=== PATIENT | female | born 1980 | race Caucasian/White ===

== ENCOUNTER 2017-08-14 14:48 | Emergency (ER) | payer OTHER ==
[2017-08-14] MEDS ORDERED: IV NORMAL SALINE 1,000ML 500 ML IV SCH (15:12)
[2017-08-14] MEDS ORDERED: NITROGLYCERIN SUBLINGUAL 0.4 MG BOTTLE OF 25. SL PRN (15:15)
--- NOTE | 2017-08-14 15:19 | EKG ---
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
[2017-08-14] MEDS ORDERED: ALPRAZolam 0.25 MG TABLET ONE (15:21)
--- NOTE | 2017-08-14 15:29 | RAD ---
Single view chest 08/14/2017 Clinical indication: Chest pain. Comparison: None. Findings: Multiple leads overlie the patient. Probable bilateral breast implants are noted which results in artifactual hazy attenuation of the lower lungs. Cardiac and mediastinal silhouettes are unremarkable. No pleural effusion, pneumothorax or focal consolidation. Impression: No acute cardiopulmonary abnormality.
[2017-08-14 15:44] LABS: BASO # 0.1 x10^3/uL (0.0-0.2); BASO % 1 % (0-3); EOS % 0 % (0-3); HEMATOCRIT 41.5 % (36.0-47.0); HEMOGLOBIN 14.3 g/dL (12.0-15.5); LYMPH # 1.9 x10^3/uL (1.0-4.8); LYMPH % 19 % (24-48); MEAN CORPUSCULAR HEMOGLOBIN 32 pg (25-35); MEAN CORPUSCULAR HGB CONC 34 g/dL (31-37); MEAN CORPUSCULAR VOLUME 94 fL (79-100); MONO # 0.6 x10^3/uL (0.0-1.1); MONO % 6 % (0-9); NEUT # 7.3 x10^3uL (1.8-7.7); NEUT % 74 % (31-73); PLATELET COUNT 358 x10^3/uL (140-400); RED BLOOD COUNT 4.43 x10^6/uL (3.50-5.40); RED CELL DISTRIBUTION WIDTH 12.7 % (11.5-14.5); WHITE BLOOD COUNT 9.9 x10^3/uL (4.0-11.0)
[2017-08-14] MEDS ORDERED: ASPIRIN 81 MG TAB.CHEW PO ONE (15:45)
[2017-08-14] MEDS ORDERED: ALPRAZolam 0.25 MG TABLET PO ONE (15:45)
[2017-08-14] MEDS ORDERED: ALPRAZolam 0.5 MG TABLET PO ONE (15:45)
[2017-08-14 16:07] LABS: ALBUMIN 4.6 g/dL (3.4-5.0); ALBUMIN/GLOBULIN RATIO 1.2 (1.0-1.7); CREATININE 0.9 mg/dL (0.6-1.0); GFR 70.5; POTASSIUM 4.2 mmol/L (3.5-5.1); TOTAL BILIRUBIN 0.9 mg/dL (0.2-1.0); TOTAL PROTEIN 8.4 g/dL (6.4-8.2)
--- NOTE | 2017-08-14 16:30 | PHYS DOC ---
General Chief Complaint: CHEST PAIN Stated Complaint: CHEST PAIN Time Seen by MD: 14:58 Problems: History of Present Illness Allergies: Coded Allergies: No Known Drug Allergies (Unverified , 08/14/17) Orders, Labs, Meds EKG: Sinus tachycardia 100 bpm, nonspecific T contour abnormality no ST segment elevation. Interpreted by me. PATIENT: SMILEY TRUJILLO ACCOUNT: [id number] : 1980 LOCATION: ER AGE: 37 SEX: F EXAM STATUS: PRE ER ORD. PHYSICIAN: KENJI JONES DO REASON: cp PROCEDURE: PORTABLE CHEST 1V Single view chest 08/14/2017 Clinical indication: Chest pain. Comparison: None. Findings: Multiple leads overlie the patient. Probable bilateral breast implants are noted which results in artifactual hazy attenuation of the lower lungs. Cardiac and mediastinal silhouettes are unremarkable. No pleural effusion, pneumothorax or focal consolidation. Impression: No acute cardiopulmonary abnormality. DICTATED AND SIGNED BY: KASIE WATSON MD DATE: 08/14/17 1525 CC: KENJI JONES DO ~ 1641: I rechecked the patient she states that her chest pain has resolved. She still has some epigastric discomfort that she feels like it is GERD related. Her heart rate has normalized and all symptoms have improved with Xanax. She now reports that her left 3 days ago and intends to follow divorce, he has not contacted her or the kids and he leaves for further training in 2 days. She's been hurting emotionally for her children. Departure Time of Disposition: 17:38 Disposition: HOME, SELF-CARE Diagnosis: panic attack, adjustment disorder Condition: IMPROVED Patient Instructions: Anxiety and Panic Attacks, Efps-ac-Holi Additional Instructions: No driving or operating machinery while taking Xanax. Exercises, seek counseling, and other modalities to deal with your current stressors. Prescription: Xanax 0.25 mg quantity 10 Follow-up with your doctor on Thursday for recheck. Return to ED with new or changing symptoms. KENJI JONES DO Aug 14, 2017 16:30
[2017-08-14] MEDS ORDERED: LIDO:MAALOX 1:1 20 ML SINGLE DOSE PO ONE (17:00)
[2017-08-14] MEDS ORDERED: ALPR0.25 PO (17:37)
[2017-08-14 17:46] VITALS: BP 140/79
== END 2017-08-14 17:46 | disposition home or self-care (01) ==
LOC: ER 14:48
DX: F41.0 Panic disorder [episodic paroxysmal anxiety] (principal); F43.22 Adjustment disorder with anxiety
CPT/HCPCS: 36415; 71045; 80053; 82550; 83690; 83880; 84484; 85025; 85379; 93005; 96360; 96361; 99285-25; J7030

== ENCOUNTER 2018-09-30 14:32 | Emergency (ER) | payer OTHER ==
[~2018-09-30] VITALS: Ht 167.6 cm; Wt 70.3 kg
[~2018-09-30 14:32] MED LIST: ALPR0.25 PO
[2018-09-30] MEDS ORDERED: METO10TA81 PO (15:49)
[2018-09-30] MEDS ORDERED: SUCR1TAB35 PO (15:49)
[2018-09-30] MEDS ORDERED: LANS15CA78 PO (15:49)
--- NOTE | 2018-09-30 15:49 | PHYS DOC ---
Past History Past Medical History: Anxiety Past Surgical History: Other Alcohol Use: Occasionally Drug Use: None Adult General Chief Complaint Chief Complaint: ANXIETY/PANIC ATTACK HPI HPI Patient is a 38-year-old female who presents with reflux symptoms, some nausea and vomiting. This has been present for the past several days. Patient believes this may be due to stress and she had similar symptoms when going through a divorce. She is now currently going through a custody jesus with her ex . She denies any blood in the emesis. No recent deployment overseas. No diarrhea. Nothing seems to make the symptoms better or worse.[] Review of Systems Review of Systems Constitutional: Denies fever or chills [] Eyes: Denies change in visual acuity, redness, or eye pain [] HENT: Denies nasal congestion or sore throat [] Respiratory: Denies cough or shortness of breath [] Cardiovascular: No chest pain or palpitations[] GI: See history of present illness[] : Denies dysuria or hematuria [] Musculoskeletal: Denies back pain or joint pain [] Integument: Denies rash or skin lesions [] Neurologic: Denies headache, focal weakness or sensory changes [] Endocrine: Denies polyuria or polydipsia [] All other systems were reviewed and found to be within normal limits, except as documented in this note. Allergies Allergies Allergies Coded Allergies Type Severity Reaction Last Updated Verified No Known Drug Allergies 09/30/18 No Physical Exam Physical Exam Constitutional: Well developed, well nourished, no acute distress, non-toxic appearance. [] HENT: Normocephalic, atraumatic, bilateral external ears normal, oropharynx moist, no oral exudates, nose normal. [] Eyes: PERRLA, EOMI, conjunctiva normal, no discharge. [] Neck: Normal range of motion, no tenderness, supple, no stridor. [] Cardiovascular:Heart rate regular rhythm, no murmur [] Lungs & Thorax: Bilateral breath sounds clear to auscultation [] Abdomen: Bowel sounds normal, soft, no tenderness, no masses, no pulsatile masses. [] Skin: Warm, dry, no erythema, no rash. [] Back: No tenderness, no CVA tenderness. [] Extremities: No tenderness, no cyanosis, no clubbing, ROM intact, no edema. [] Neurologic: Alert and oriented X 3, normal motor function, normal sensory function, no focal deficits noted. [] Psychologic: Affect normal, judgement normal, mood normal. [] Current Patient Data Vital Signs Vital Signs Date Time Temp Pulse Resp B/P (MAP) Pulse Ox O2 Delivery O2 Flow Rate FiO2 09/30/18 14:43 98.4 107 18 97 Room Air EKG EKG [] Radiology/Procedures Radiology/Procedures [] Course & Med Decision Making Course & Med Decision Making Pertinent Labs and Imaging studies reviewed. (See chart for details) Medical decision making: We've the patient has gastritis and reflux potentially due to stress. We will attempt treatment as an outpatient with proton pump inhibitors as well as sucralfate. Will also prescribe antiemetics. Discussed sleep hygiene and potential smartphone applications such as "Zealify" to help with sleep rather than through medication. Patient voiced understanding. And was discharged in improved condition.[] Dragon Disclaimer Dragon Disclaimer This electronic medical record was generated, in whole or in part, using a voice recognition dictation system. Departure Departure: Impression: Primary Impression: Nausea and vomiting Additional Impressions: Gastritis Gastroesophageal reflux disease Disposition: HOME, SELF-CARE Condition: IMPROVED Referrals: PCP,UNKNOWN (PCP) Keep your appointment this next Thursday on post Patient Instructions: Diet for Gastroesophageal Reflux Disease, Adult, Gastritis, Adult, Gastroesophageal Reflux Disease, Adult, Nausea and Vomiting, Stress, Stress Management Additional Instructions: Follow-up with your regular doctor appointment scheduled for this next Thursday. Try chamomile tea with Valerian root at bedtime. This is so old commercially as Sleepy Time Extra. Try the smartphone application "Zealify" for a non- pharmaceutical Sleep-Aid. Return to the ER if worsening discomfort or any other concerns. Scripts Sucralfate (CARAFATE) 1 Gm Tablet 1 TAB PO QID for gastritis/reflux, #120 TAB 0 Refills Prov: LISA JONES DO 09/30/18 Lansoprazole (PREVACID) 15 Mg Capsule.dr 1 CAP PO DAILY for gastritis, #30 CAP 0 Refills Prov: LISA JONES DO 09/30/18 Metoclopramide Hcl (REGLAN) 10 Mg Tablet 10 MG PO QID for nausea and vomiting, #30 TAB Prov: LISA JONES DO 3/7/19 Problem Qualifiers Primary Impression: Nausea and vomiting Vomiting type: unspecified Vomiting Intractability: non-intractable Qualified Codes: R11.2 - Nausea with vomiting, unspecified Additional Impressions: Gastritis Gastritis type: unspecified gastritis Chronicity: unspecified Gastritis bleeding: without bleeding Qualified Codes: K29.70 - Gastritis, unspecified, without bleeding Gastroesophageal reflux disease Esophagitis presence: esophagitis presence not specified Qualified Codes: K21.9 - Gastro-esophageal reflux disease without esophagitis LISA JONES DO Sep 30, 2018 15:49
[2018-09-30 16:01] VITALS: BP 133/82
== END 2018-09-30 16:02 | disposition home or self-care (01) ==
LOC: ER 14:32
DX: K29.70 Gastritis, unspecified, without bleeding (principal); K21.9 Gastro-esophageal reflux disease without esophagitis; F41.9 Anxiety disorder, unspecified
CPT/HCPCS: 99283